=== PATIENT | male | born 1980 | race Caucasian/White ===

== ENCOUNTER 2021-02-03 12:44 | Day surgery (SDC) | payer BC ==
[2021-02-03] MEDS ORDERED: Sodium Chloride 0.9(Preservative Free) 10 ML IJ ONE (12:45)
[2021-02-03] MEDS ORDERED: Xylocaine 1% Vial 30 ML PF IJ ONE (12:45)
[2021-02-03] MEDS ORDERED: Depo-Medrol 40 MG/ML IM ONE (12:45)
[2021-02-03] MEDS ORDERED: DIPRIVAN 200 MG/20 ML IV ONE ×3 (14:22→14:36)
[2021-02-03] MEDS ORDERED: Lactated Ringers 1,000 ML IV ONE (16:15)
--- NOTE | 2021-02-04 11:30 | XRAY ---
34 seconds fluoroscopy time in surgery for lumbar ARYA.
--- NOTE | 2021-02-06 22:58 | XRAY ---
Indication: Lumbar ARYA. Intraoperative fluoroscopy was provided for 34 seconds. A single lateral digital spot image submitted for interpretation demonstrates a posterior needle tip. Unfortunately, the image is very suboptimal precluding further assessment. Correlate with intraoperative findings/report.
== END 2021-02-03 15:00 | disposition home or self-care (01) ==
LOC: SDC-PAIN 12:44
PROVIDERS: ATTEND Psychiatry & Neurology Pain Medicine
DX: M54.16 Radiculopathy, lumbar region (principal); Z79.899 Other long term (current) drug therapy
CPT/HCPCS: 62323; 72100; 77003; J1030; J2001; J2704; Q9966

== ENCOUNTER 2021-03-03 11:39 | Day surgery (SDC) | payer BC ==
[2021-03-03] MEDS ORDERED: Depo-Medrol 40 MG/ML IM ONE (11:40)
[2021-03-03] MEDS ORDERED: BUPIVACAINE 0.5% VIAL IJ ONE (11:40)
[2021-03-03] MEDS ORDERED: DIPRIVAN 200 MG/20 ML IV ONE ×2 (13:00→13:13)
--- NOTE | 2021-03-03 14:11 | XRAY ---
Indication: Bilateral SI joint injection. Intraoperative fluoroscopy provided for 24 seconds. 4 digital spot image submitted for interpretation demonstrates posterior needle tip projecting over the inferior left and right SI joints. Correlate with intraoperative findings/report.
--- NOTE | 2021-03-03 14:13 | XRAY ---
24 seconds of fluoroscopy was used in surgery for a bilateral sacroiliac joint injection.
[2021-03-03] MEDS ORDERED: Lactated Ringers 1,000 ML IV ONE (16:29)
== END 2021-03-03 13:28 | disposition home or self-care (01) ==
LOC: SDC-PAIN 11:39
PROVIDERS: ATTEND Psychiatry & Neurology Pain Medicine
DX: M46.1 Sacroiliitis, not elsewhere classified (principal); Z79.899 Other long term (current) drug therapy
CPT/HCPCS: 27096; 72202; 77002; J1030; J2704; G0260